=== PATIENT | female | born 1980 | race Caucasian/White ===

== ENCOUNTER → 2024-07-07 | Outpatient (CLI) | payer BC ==
[~2024-07-07] MED LIST: Adipex-P37.5 MG PO; HYDR1TAB94 PO; LIOT5 PO; TOPI50 PO
[2024-07-08 10:32] LABS: Stool Occult Bld Immuno 1 Negative (NEGATIVE)
== END ==
LOC: LAB SHORT 16:58 → LAB 16:58
PROVIDERS: Family Medicine
DX: Z12.11 Encounter for screening for malignant neoplasm of colon (principal)
CPT/HCPCS: G0328